=== PATIENT | female | born 1945 ===

== ENCOUNTER → 2019-10-22 13:35 | Outpatient (BNVA) | payer MEDICARE, BC, SELFPAY | PROVIDERS: Referring Provider Registered Nurse; Visit Provider Psychiatry & Neurology Neurology | DX: I95.1 Orthostatic hypotension (principal); G21.11 Neuroleptic induced parkinsonism; R41.3 Other amnesia; I10 Essential (primary) hypertension | CPT/HCPCS: 99205 ==

== ENCOUNTER → 2019-12-24 12:07 | Outpatient (BNVA) | payer MEDICARE, BC, SELFPAY | PROVIDERS: Visit Provider Psychiatry & Neurology Neurology | DX: G21.11 Neuroleptic induced parkinsonism (principal); I95.1 Orthostatic hypotension; R41.3 Other amnesia; I10 Essential (primary) hypertension; T43.505D Adverse effect of unspecified antipsychotics and neuroleptics, subsequent encounter | CPT/HCPCS: 99214 ==

== ENCOUNTER → 2020-03-25 12:18 | Outpatient (BNVA) | payer MEDICARE, BC, SELFPAY | PROVIDERS: Visit Provider Psychiatry & Neurology Neurology | DX: G21.11 Neuroleptic induced parkinsonism (principal); I95.1 Orthostatic hypotension; R41.3 Other amnesia; R40.0 Somnolence; I10 Essential (primary) hypertension | CPT/HCPCS: 99214 ==

== ENCOUNTER → 2020-06-24 11:03 | Outpatient (BNVA) | payer MEDICARE, BC, SELFPAY | PROVIDERS: Visit Provider Psychiatry & Neurology Neurology | DX: R40.0 Somnolence (principal); G21.11 Neuroleptic induced parkinsonism; I95.1 Orthostatic hypotension; R41.3 Other amnesia; I10 Essential (primary) hypertension; Z79.899 Other long term (current) drug therapy | CPT/HCPCS: 99215 ==

== ENCOUNTER → 2020-12-23 11:03 | Outpatient (BNVA) | payer MEDICARE, BC, SELFPAY | PROVIDERS: Visit Provider Psychiatry & Neurology Neurology | DX: R40.0 Somnolence (principal); G21.11 Neuroleptic induced parkinsonism; T43.505D Adverse effect of unspecified antipsychotics and neuroleptics, subsequent encounter; I95.1 Orthostatic hypotension; R41.3 Other amnesia; I10 Essential (primary) hypertension | CPT/HCPCS: 99213 ==

== ENCOUNTER → 2021-06-22 11:20 | Outpatient (BNVA) | payer MEDICARE, BC, SELFPAY | PROVIDERS: Visit Provider Psychiatry & Neurology Neurology | DX: F41.9 Anxiety disorder, unspecified (principal); R35.1 Nocturia; G21.11 Neuroleptic induced parkinsonism; I95.1 Orthostatic hypotension; R41.3 Other amnesia; R40.0 Somnolence | CPT/HCPCS: 99214 ==

== ENCOUNTER → 2022-01-30 12:54 | Outpatient (BNVA) | payer MEDICARE, BC, SELFPAY | PROVIDERS: PCP Registered Nurse; Referring Provider Registered Nurse; Visit Provider Psychiatry & Neurology Neurology | DX: G21.11 Neuroleptic induced parkinsonism (principal); I95.1 Orthostatic hypotension; R41.3 Other amnesia; R40.0 Somnolence; I48.91 Unspecified atrial fibrillation; I10 Essential (primary) hypertension | CPT/HCPCS: 99215 ==

== ENCOUNTER → 2023-08-14 12:17 | Outpatient (BNVA) | payer MEDICARE, BC, SELFPAY | PROVIDERS: PCP Registered Nurse; Referring Provider Registered Nurse; Visit Provider Psychiatry & Neurology Neurology | DX: G21.11 Neuroleptic induced parkinsonism (principal); I95.1 Orthostatic hypotension; R41.3 Other amnesia | CPT/HCPCS: 99214 ==

== ENCOUNTER → 2024-08-12 11:04 | Outpatient (BNVA) | payer MEDICARE, BC, SELFPAY | PROVIDERS: PCP Registered Nurse; Referring Provider Registered Nurse; Visit Provider Psychiatry & Neurology Neurology | DX: G21.11 Neuroleptic induced parkinsonism (principal); I95.1 Orthostatic hypotension; R41.3 Other amnesia; I10 Essential (primary) hypertension | CPT/HCPCS: 99215 ==

== ENCOUNTER → 2024-10-23 12:34 | Outpatient (BNVA) | payer MEDICARE, BC, SELFPAY | PROVIDERS: PCP Registered Nurse; Referring Provider Registered Nurse; Visit Provider Psychiatry & Neurology Neurology | DX: G21.11 Neuroleptic induced parkinsonism (principal); I95.1 Orthostatic hypotension; R41.3 Other amnesia; R42 Dizziness and giddiness; I10 Essential (primary) hypertension | CPT/HCPCS: 99214 ==